=== PATIENT | female | born 1940 ===

== ENCOUNTER → 2022-06-04 11:27 | Outpatient (CLI) | payer OTHER, SELFPAY ==
--- NOTE | ~2022-06-04 | MR_ITS ---
EXAMINATION: MR lumbar spine wo con DATE: 06/04/2022 12:10 INDICATION: Compression fracture. TECHNIQUE: Magnetic resonance imaging (MRI) of the lumbar spine was performed without intravenous con trast. Sequences included sagittal T2-weighted FSE, sagittal T2-weighted FS FSE, sagittal T1-weighted FSE, and axial T2-weighted FSE. COMPARISON: None FINDINGS: Alignment is normal. Schmorl's node along the inferior endplate of T12. L1 burst fracture with 60% an terior to central vertebral body height loss and with 2-3 mm retropulsion at both the superior and in ferior aspects of the posterior wall. L2 compression fracture with 20% central vertebral body height loss and 2 mm retropulsion at the superior aspect of the posterior wall. L3 and L4 compression fractu res with depression of the superior endplate resulting in 40% central vertebral body height loss. The re are changes of prior vertebroplasty associated with the L2, L3 and L4 vertebral bodies. There is a dditional acute to subacute L5 compression fracture with marrow edema surrounding a linear low signal intensity fracture plane underlying the superior endplate of L5 with <10% central vertebral body hei ght loss. Mild to moderate disc height loss at L5-S1. There is some ballooning of the disc spaces fro m T12-L1 through L3-L4 resulting from the vertebral fractures. The conus medullaris terminates at L1. There is normal signal in the caudal spinal cord. Paravertebral soft tissues are unremarkable. The f ollowing disc levels are specifically discussed: T12-L1: The disc does not extend beyond the endplate margin. There is bilateral facet joint osteoarth ritis. There is no neural foraminal stenosis. There is no central canal stenosis at the level of the disc space. mild central canal stenosis at both the cephalad and caudal aspects of the L1 vertebral b po resulting from the mild retropulsion. L1-L2: The disc does not extend beyond the endplate margin. There is altered left and moderate right facet joint osteoarthritis. There is mild left and mild to moderate right neural foraminal stenosis. There is no central canal stenosis at the level of the disc space with mild central canal stenosis re sulting from the mild retropulsion at the level of the cephalad aspect of the L2 vertebral body. L2-L3: Moderate disc bulge. There is hypertrophy of the ligamentum flavum. There is moderate bilater al facet joint osteoarthritis. There is moderate bilateral neural foraminal stenosis. There is modera te central canal stenosis. L3-L4: Disc is mildly bulging. There is hypertrophy of the ligamentum flavum. There is moderate bilat eral facet joint osteoarthritis. There is moderate bilateral neural foraminal stenosis. There is mild to moderate central canal stenosis. L4-L5: Disc is mildly bulging. There is severe bilateral facet joint osteoarthritis. There is mild to moderate bilateral neural foraminal stenosis. There is mild central canal stenosis. L5-S1: Disc is mildly bulging with annular fissure. There is hypertrophy of the ligamentum flavum. Th ere is severe bilateral facet joint osteoarthritis. There is mild to moderate bilateral neural forami nal stenosis. There is mild central canal stenosis. IMPRESSION: 1. Acute to subacute compression fracture with minimal depression of the superior endplate. 2. 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 3. 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 Reviewed, dictated and finalized at location A. [employer] IMPRESSION: 1. Acute to subacute compression fracture with minimal depression of the superi or endplate. 2. C
== END ==
PROVIDERS: PCP Family Medicine; Visit Provider Physician Assistant
DX: S32.011A Stable burst fracture of first lumbar vertebra, initial encounter for closed fracture (principal); S32.021A Stable burst fracture of second lumbar vertebra, initial encounter for closed fracture; S32.031A Stable burst fracture of third lumbar vertebra, initial encounter for closed fracture; S32.041A Stable burst fracture of fourth lumbar vertebra, initial encounter for closed fracture; X58.XXXA Exposure to other specified factors, initial encounter; M47.816 Spondylosis without myelopathy or radiculopathy, lumbar region
CPT/HCPCS: 72148